=== PATIENT | female | born 1975 | race American Indian/Alaskan Native ===

== ENCOUNTER 2018-01-17 04:05 | Emergency (ER) | payer OTHER ==
[2018-01-17 04:28] VITALS: BP 127/77; PULSE 78; RESP 18; TEMP 98.5; O2SAT 99
[2018-01-17] MEDS ORDERED: Naproxen 500 MG TAB PO STA (05:36)
--- NOTE | 2018-01-17 05:37 | ED PDOC ---
Upper Extremity Pain/Injury Time Seen by Provider: 01/17/18 04:58 Chief Complaint (Nursing): Upper Extremity Problem/Injury Chief Complaint (Provider): Finger Pain History Per: Patient History/Exam Limitations: no limitations Onset/Duration Of Symptoms: Hrs Current Symptoms Are (Timing): Still Present Quality: "Pain" Pain Scale Rating Of: 7 Additional Complaint(s): 43 y/o female complaining of left fourth digit pain for the last few hours. She reports that she accidentally fell asleep with her wedding band in place, and woke up from pain in the left fourth digit. Patient tried to remove the ring with string, windex, oil, and ice but was unsuccessful and made swelling worse. No numbness or loss of sensation reported. Patient reports localized pain at this time. Patient is left hand dominant. PMD: Dr. Noel Past Medical History Reviewed: Historical Data, Nursing Documentation, Vital Signs Vital Signs: Last Vital Signs Temp 98.5 F 01/17/18 04:23 Pulse 78 01/17/18 04:23 Resp 18 01/17/18 04:23 BP 127/77 01/17/18 04:23 Pulse Ox 99 01/17/18 04:23 - Medical History PMH: No Chronic Diseases - Surgical History Surgical History: No Surg Hx - Family History Family History: States: Unknown Family Hx - Living Arrangements Living Arrangements: With Family - Social History Current smoker - smoking cessation education provided: Yes (4-5cigs/day) Alcohol: Social Drugs: Denies - Home Medications Home Medications: Ambulatory Orders Medication Instructions Recorded Naproxen 500 mg PO BID PRN #20 tab 01/17/18 - Allergies Allergies/Adverse Reactions: Allergies Allergy/AdvReac Type Severity Reaction Status Date / Time codeine AdvReac NAUSEA Verified 01/17/18 04:24 Review of Systems ROS Statement: Except As Marked, All Systems Reviewed And Found Negative Musculoskeletal: Positive for: Other (+ finger pain) Physical Exam - Reviewed Vital Signs Reviewed: Yes - Physical Exam Appears: Positive for: Well, No Acute Distress Head Exam: Positive for: NORMOCEPHALIC Skin: Positive for: Normal Color, Warm, Dry Eye Exam: Positive for: Normal appearance Neck: Positive for: Supple. Negative for: Pain On Movement Of Neck Cardiovascular/Chest: Positive for: Regular Rate, Rhythm Respiratory: Positive for: Normal Breath Sounds. Negative for: Decreased Breath Sounds, Respiratory Distress Extremity: Positive for: Other (swelling of the proximal phalynx of the left 4th digit. Localized TTP. Cap Refill normal in affected digit.) Neurologic/Psych: Positive for: Other (Sensation and cap refill to left 4th digit intact. ) - ECG O2 Sat by Pulse Oximetry: 99 (RA) Pulse Ox Interpretation: Normal Medical Decision Making Medical Decision Making: Impression: Extraction of Foreign Object Constricting Digit Patient treated with 500mg PO Naproxen. Ring removed with ring cutter by Charlene DOVE and patient reports immediate relief. Digit NV intact. All questions answered. Patient discharged in stable condition. Follow up with PMD in 1-2 days without fail. Return to ED with any new or worsening symptoms. Scribe Attestation Documented by Margaret Pickard acting as a scribe for Carissa Chang PA-C Provider Attestation All medical record entries made by the Scribe were at my direction and personally dictated by me. I have reviewed the chart and agree that the record accurately reflects my personal performance of the history, physical exam, medical decision making, and the department course for this patient. I have also personally directed, reviewed, and agree with the discharge instructions and disposition. Disposition - Clinical Impression Clinical Impression: Tight ring on finger - Patient ED Disposition Is Patient to be Admitted: No Counseled Patient/Family Regarding: Diagnosis, Rx Given - Disposition Referrals: [facility] [place] [Outside] Disposition: Routine/Home Disposition Time: 05:36 Condition: IMPROVED Prescriptions: Naproxen 500 mg PO BID PRN #20 tab PRN Reason: Inflammation Forms: [facility] (Icelandic) Print Language: MALIAN
[2018-01-17] MEDS ORDERED: Naproxen 500 MG TAB PO ONE (05:44)
== END 2018-01-17 06:08 | disposition home or self-care (01) ==
LOC: H.ER 04:05
DX: S60.449A External constriction of unspecified finger, initial encounter (principal); W49.04XA Ring or other jewelry causing external constriction, initial encounter; Y92.89 Other specified places as the place of occurrence of the external cause; Z88.5 Allergy status to narcotic agent